=== PATIENT | male | born 1940 | race Caucasian/White ===

== ENCOUNTER 2021-01-25 23:25 | Inpatient (IN) | payer MEDICARE ==
[~2021-01-25] VITALS: Ht 165.1 cm; Wt 72.3 kg
[2021-01-26 00:52] VITALS: BP 118/73
[2021-01-26] MEDS ORDERED: HEPARIN 5,000 UNITS/ML, 1ML ONE (01:29)
[2021-01-26] MEDS ORDERED: DEXTROSE 4 GM TAB.CHEW PO PRN (01:30)
[2021-01-26] MEDS: INSULIN LISPRO 100 UNITS/ML, PEN SQ-INSULIN SCH ×5 (01:30→22:16)
[2021-01-26] MEDS ORDERED: DEXTROSE 50%, 50ML SYRINGE IVPush PRN (01:30)
[2021-01-26] MEDS ORDERED: ONDANSETRON 2MG/ML, 2ML IVPush PRN (01:30)
[2021-01-26] MEDS ORDERED: LABETALOL 5MG/ML, 20ML IVPush PRN (01:30)
[2021-01-26] MEDS ORDERED: POLYETHYLENE GLYCOL 17 GM PACKET PO PRN (01:30)
[2021-01-26] MEDS ORDERED: MELATONIN 5 MG TABLET PO PRN (01:30)
[2021-01-26] MEDS ORDERED: GLUCAGON 1 MG IM PRN (01:30)
[2021-01-26] MEDS: HEPARIN 5,000 UNITS/ML, 1ML SQ SCH ×3 (01:39→18:09)
[2021-01-26] MEDS: LACTATED RINGERS 1,000 ML IV SCH ×2 (01:40→15:23)
[2021-01-26] MEDS: PLEASE ENTER HEIGHT MC SCH ×4 (02:00→22:37)
[2021-01-26] MEDS: PLEASE ENTER ALLERGIES MC SCH ×4 (02:00→22:37)
[2021-01-26 02:12] VITALS: BP 101/68
[2021-01-26 02:46] VITALS: BP 105/68
[2021-01-26 06:14] LABS: BASOPHILS % (AUTO) 1 % (0-1); EOSINOPHILS % (AUTO) 3 % (1-7); LYMPHOCYTES % (AUTO) 11 % (22-44); MEAN CORPUSCULAR HEMOGLOBIN 30.5 pg (27.5-34.5); MEAN CORPUSCULAR HGB CONC 33.8 g/dL (33.2-36.2); MEAN PLATELET VOLUME 8.7 fL (7.4-10.4); MONOCYTES % (AUTO) 10 % (2-9); NEUTROPHILS % (AUTO) 76 % (42-75); PLATELET COUNT 270 x10^3/uL (130-400); RED BLOOD COUNT 2.53 x10^6/uL (4.38-5.82); RED CELL DISTRIBUTION WIDTH 13.3 % (9.4-14.8)
[2021-01-26 06:21] LABS: ANION GAP 11 mmol/L (5-15); CALCIUM 9.4 mg/dL (8.5-10.1); CHLORIDE 102 mmol/L (98-107)
[2021-01-26 06:22] LABS: CREATININE 3.13 mg/dL (0.7-1.3)
[2021-01-26 08:14] VITALS: BP 118/65
[2021-01-26] MEDS: SODIUM CHLORIDE FLUSH 10ML SYR IVF SCH ×2 (08:28→22:17)
--- NOTE | 2021-01-26 11:28 | NUR ---
SO reports pt height is 67" Addendum: 01/26/21 at [address] Amended: Links added.
[2021-01-26 13:05] VITALS: BP 113/63
[2021-01-26 18:46] LABS: MICROSCOPIC INDICATED
[2021-01-26 19:03] LABS: CREATININE,URINE RANDOM 44.6 mg/dL
[2021-01-26 22:13] VITALS: BP 135/89
[2021-01-27] MEDS: LACTATED RINGERS 1,000 ML IV SCH ×2 (04:07→16:55)
[2021-01-27 04:08] VITALS: BP 126/69
[2021-01-27] MEDS: HEPARIN 5,000 UNITS/ML, 1ML SQ SCH ×2 (04:08→13:00)
[2021-01-27 06:13] LABS: BASOPHILS % (AUTO) 1 % (0-1); EOSINOPHILS % (AUTO) 4 % (1-7); LYMPHOCYTES % (AUTO) 14 % (22-44); MEAN CORPUSCULAR HEMOGLOBIN 30.7 pg (27.5-34.5); MEAN CORPUSCULAR HGB CONC 33.9 g/dL (33.2-36.2); MEAN PLATELET VOLUME 8.9 fL (7.4-10.4); MONOCYTES % (AUTO) 10 % (2-9); NEUTROPHILS % (AUTO) 71 % (42-75); PLATELET COUNT 243 x10^3/uL (130-400); RED BLOOD COUNT 2.53 x10^6/uL (4.38-5.82); RED CELL DISTRIBUTION WIDTH 13.6 % (9.4-14.8)
[2021-01-27 06:32] VITALS: BP 109/65
[2021-01-27 06:37] LABS: ANION GAP 8 mmol/L (5-15); CALCIUM 9.6 mg/dL (8.5-10.1); CHLORIDE 107 mmol/L (98-107)
[2021-01-27 06:57] LABS: CREATININE 2.75 mg/dL (0.7-1.3)
[2021-01-27] MEDS: INSULIN LISPRO 100 UNITS/ML, PEN SQ-INSULIN SCH ×4 (07:00→21:00)
[2021-01-27] MEDS: PLEASE ENTER ALLERGIES MC SCH (08:45)
[2021-01-27] MEDS: PLEASE ENTER HEIGHT MC SCH (08:45)
[2021-01-27] MEDS: SODIUM CHLORIDE FLUSH 10ML SYR IVF SCH ×2 (11:54→21:57)
[2021-01-27 14:04] VITALS: BP 111/61
[2021-01-27] MEDS ORDERED: BUDE10.22 IH (18:19)
[2021-01-27] MEDS ORDERED: MORP30TA PO (18:19)
[2021-01-27] MEDS ORDERED: IPRA4AER INH (18:19)
[2021-01-27] MEDS ORDERED: HYDR-2214 PO (18:19)
[2021-01-27] MEDS ORDERED: PREG100C PO (18:19)
[2021-01-27] MEDS ORDERED: SILO8CAP2 PO (18:19)
[2021-01-27] MEDS ORDERED: DONE10TA7 PO (18:22)
[2021-01-27] MEDS ORDERED: DABI150C PO (18:22)
[2021-01-27] MEDS ORDERED: ENZA40CA PO (18:22)
[2021-01-27] MEDS ORDERED: MIRA50TA PO (18:22)
[2021-01-27 20:32] VITALS: BP 127/71
[2021-01-28 01:59] VITALS: BP 150/79
[2021-01-28 06:10] LABS: BASOPHILS % (AUTO) 1 % (0-1); EOSINOPHILS % (AUTO) 4 % (1-7); LYMPHOCYTES % (AUTO) 17 % (22-44); MEAN CORPUSCULAR HEMOGLOBIN 30.7 pg (27.5-34.5); MEAN CORPUSCULAR HGB CONC 33.9 g/dL (33.2-36.2); MONOCYTES % (AUTO) 10 % (2-9); NEUTROPHILS % (AUTO) 69 % (42-75); PLATELET COUNT 248 x10^3/uL (130-400); RED CELL DISTRIBUTION WIDTH 13.7 % (9.4-14.8)
[2021-01-28 06:13] LABS: CHLORIDE 110 mmol/L (98-107)
[2021-01-28 06:17] LABS: ANION GAP 8 mmol/L (5-15); CALCIUM 9.4 mg/dL (8.5-10.1); CREATININE 2.26 mg/dL (0.7-1.3)
[2021-01-28] MEDS: INSULIN LISPRO 100 UNITS/ML, PEN SQ-INSULIN SCH ×4 (07:00→20:11)
[2021-01-28 09:42] VITALS: BP 122/70
[2021-01-28] MEDS: LACTATED RINGERS 1,000 ML IV SCH ×2 (10:19→23:12)
[2021-01-28] MEDS: SODIUM CHLORIDE FLUSH 10ML SYR IVF SCH ×2 (10:20→20:11)
[2021-01-28] MEDS: OXYcodone IR 5MG TABLET PO PRN ×2 (14:43→23:12)
[2021-01-28 15:39] VITALS: BP 133/72
[2021-01-28 19:45] VITALS: BP 155/69
[2021-01-29 00:45] VITALS: BP 136/71
[2021-01-29 06:23] LABS: BASOPHILS % (AUTO) 1 % (0-1); EOSINOPHILS % (AUTO) 1 % (1-7); LYMPHOCYTES % (AUTO) 8 % (22-44); MEAN CORPUSCULAR HEMOGLOBIN 30.2 pg (27.5-34.5); MEAN CORPUSCULAR HGB CONC 33.5 g/dL (33.2-36.2); MEAN PLATELET VOLUME 8.7 fL (7.4-10.4); MONOCYTES % (AUTO) 8 % (2-9); NEUTROPHILS % (AUTO) 82 % (42-75); PLATELET COUNT 289 x10^3/uL (130-400); RED BLOOD COUNT 2.78 x10^6/uL (4.38-5.82); RED CELL DISTRIBUTION WIDTH 13.4 % (9.4-14.8)
[2021-01-29 06:36] LABS: ALBUMIN 2.1 g/dL (3.4-5.0); ANION GAP 9 mmol/L (5-15); CALCIUM 9.9 mg/dL (8.5-10.1); CHLORIDE 107 mmol/L (98-107)
[2021-01-29 06:41] LABS: ALANINE AMINOTRANSFERASE 10 U/L (12-78); ALKALINE PHOSPHATASE 107 U/L (45-117); BILIRUBIN,TOTAL 0.4 mg/dL (0.2-1.0); CREATININE 2.26 mg/dL (0.7-1.3)
[2021-01-29] MEDS: INSULIN LISPRO 100 UNITS/ML, PEN SQ-INSULIN SCH ×4 (07:00→20:39)
[2021-01-29 07:50] VITALS: BP 119/69
[2021-01-29] MEDS: SODIUM CHLORIDE FLUSH 10ML SYR IVF SCH ×2 (09:30→20:45)
[2021-01-29] MEDS: LACTATED RINGERS 1,000 ML IV SCH (10:53)
[2021-01-29] MEDS: OXYcodone IR 5MG TABLET PO PRN (12:59)
[2021-01-29 14:15] VITALS: BP 126/69
[2021-01-29 20:05] VITALS: BP 132/66
[2021-01-29] MEDS ORDERED: DONEPEZIL 10 MG TABLET PO SCH (21:00)
[2021-01-30 01:56] VITALS: BP 147/75
[2021-01-30] MEDS: INSULIN LISPRO 100 UNITS/ML, PEN SQ-INSULIN SCH ×2 (08:09→08:11)
[2021-01-30 08:40] VITALS: BP 133/73
[2021-01-30] MEDS: SODIUM CHLORIDE FLUSH 10ML SYR IVF SCH (09:00)
== END 2021-01-30 11:55 | disposition hospice, home (50) | DRG 693 ==
LOC: 4EST 01-26 00:39 → UNDODISIN 01-30 10:54
PROVIDERS: ADMIT Internal Medicine; ATTEND Family Medicine
DX: N13.30 Unspecified hydronephrosis (principal); E43 Unspecified severe protein-calorie malnutrition; G92 Toxic encephalopathy; C79.51 Secondary malignant neoplasm of bone; N17.9 Acute kidney failure, unspecified; C61 Malignant neoplasm of prostate; G89.29 Other chronic pain; J44.9 Chronic obstructive pulmonary disease, unspecified; E83.39 Other disorders of phosphorus metabolism; Y84.2 Radiological procedure and radiotherapy as the cause of abnormal reaction of the patient, or of later complication, without mention of misadventure at the time of the procedure; D64.9 Anemia, unspecified; Z51.5 Encounter for palliative care; Z79.01 Long term (current) use of anticoagulants; Z79.818 Long term (current) use of other agents affecting estrogen receptors and estrogen levels; Z79.891 Long term (current) use of opiate analgesic; Z85.46 Personal history of malignant neoplasm of prostate; Z86.718 Personal history of other venous thrombosis and embolism; Z88.0 Allergy status to penicillin; Z68.26 Body mass index [BMI] 26.0-26.9, adult; R31.9 Hematuria, unspecified
CPT/HCPCS: 36415; 76770; 80048; 80053; 81001; 82570; 82962; 83036; 83735; 84100; 84153; 84300; 85025; 87086; G0378; J1644; G0103; J7120